=== PATIENT | male | born 1960 | race Caucasian/White ===

== ENCOUNTER 2016-10-16 15:33 | Emergency (ER) | payer MEDICARE ==
[2016-10-16 16:31] LABS: #Lymphocytes 2.1 thou/uL (1.20-3.40); #Monocytes 0.6 thou/uL (0.11-0.59); #Neutrophils 5.5 thou/uL (1.40-6.50); %Basophils 0.3 % (0.0-1.0); %Eosinophils 0.4 % (0.0-10.0); %Lymphocytes 25.2 % (21.0-51.0); %Monocytes 7.8 % (0.0-10.0); %Neutrophils 66.3 % (42.0-75.0); Hemoglobin 15.6 g/dL (14.0-18.0); Mean Corpuscular HGB CONC 34.1 g/dL (32.0-36.0); Mean Corpuscular Hemoglobin 32.1 pg (27.0-31.0); Mean Corpuscular Volume 93.9 fl (80.0-94.0); Mean Platelet Volume 6.6 fL (7.4-10.4); Platelet Count 211 thou/uL (130-400); RBC Distribution Width 11.1 % (11.5-14.5); Red Blood Cell (RBC) Count 4.86 mill/uL (4.70-6.10); White Blood Cell (WBC) Count 8.3 thou/uL (4.8-10.8)
[2016-10-16] MEDS ORDERED: Piperacillin/Tazobactam 3.375 GM VIAL ONE (16:40)
[2016-10-16] MEDS ORDERED: Sodium Chloride 0.9% 100 ML ONE (16:40)
[2016-10-16] MEDS ORDERED: HYDROcodone/Acetaminophen 10/325 mg Tablet ONE (16:41)
[2016-10-16 16:44] LABS: Anion Gap 14 mmol/L (10-20); BUN (Urea Nitrogen) 9 mg/dL (8.4-25.7); Calc. Creatinine Clearance 0 mL/min (70-130); Calcium 9.1 mg/dL (7.8-10.44); Carbon Dioxide 24 mmol/L (22-29); Chloride 105 mmol/L (98-107); Estimated GFR-MDRD Greater than 90; Glucose 101 mg/dL (70-105); Sodium 139 mmol/L (136-145)
--- NOTE | 2016-10-16 16:58 | RAD ---
RIGHT HAND THREE VIEWS: 10/16/16 Three views are submitted following a dog bite. I do not know the exact site of the injury. No gross fracture or opaque foreign body was seen. The only area in question was at the base of the ring fin randa near the web space between the third and fourth digits, as there is a small density here. I feel it is more likely artifact than real as I cannot see it on any other view. This finding should be c orrelated with the exact site of the bite. Otherwise, all bony structures appear normal. IMPRESSION: Probably no acute findings. See comments above regarding the base of the ring finger between it and the middle finger. Code T POS: HOME
== END 2016-10-16 17:08 | disposition home or self-care (01) ==
LOC: BURERS 15:33
DX: S61.432A Puncture wound without foreign body of left hand, initial encounter (principal); L03.114 Cellulitis of left upper limb; F31.9 Bipolar disorder, unspecified; F17.220 Nicotine dependence, chewing tobacco, uncomplicated; W54.0XXA Bitten by dog, initial encounter
CPT/HCPCS: 80048; 85025; 87040; 96365; J2543; J7050